=== PATIENT | male | born 1990 ===

== ENCOUNTER 2018-12-28 19:34 | Emergency (ER) | payer SELFPAY ==
--- NOTE | 2018-12-28 20:38 | Event Note ---
ED Screening Note Date of service: 12/28/18 Time: 20:32 ED Screening Note: 28 y o male presents to Ed cc of left sided testicular pain This initial assessment/diagnostic orders/clinical plan/treatment(s) is/are subject to change based on patients health status, clinical progression and re-assessment by fellow clinical providers in the ED. Further treatment and workup at subsequent clinical providers discretion. Patient/guardian urged not to elope from the ED as their condition may be serious if not clinically assessed and managed. Initial orders include: ua US
--- NOTE | 2018-12-28 23:43 | Ultrasound Report ---
Scrotal ultrasound. 12/28/2018. HISTORY: Scrotal pain. FINDINGS: Right testicle measures 4.2 x 2.2 x 2.8 cm. Left testicle measures 4.7 x 1.9 x 2.8 cm. Both testicles are homogeneous and contain no mass. Vascular flow is appropriate bilaterally. A small left hydrocel e is noted. IMPRESSION: Small left hydrocele. Signer Name: Ike Bueno MD Signed: 12/28/2018 11:39 PM Workstation Name: [id number]
--- NOTE | 2018-12-29 00:05 | Emergency Department Report ---
ED Male HPI - General Chief complaint: Urogenital-Male Stated complaint: TESTICULAR PAIN Time Seen by Provider: 12/29/18 00:04 Source: patient Mode of arrival: Ambulatory Limitations: No Limitations - History of Present Illness Initial comments: This is a 28-year-old male presents to the emergency department for evaluation of bilateral testicular pain for the past 5 months. Patient reports she was accidentally hit in the testicle by the strap of his boxers and a few days later to some pull-ups and felt severe pain in the testicles. He states the pain was aggravated by any movement or new alleviating factors. Patient rates the severity of his pain is 7 out of 10 and describes as dull and achy. He denies any lesions, dysuria, urinary frequency, urinary urgency, no discharge, hematuria. MD Complaint: testicle pain - Related Data Previous Rx's Medication Instructions Recorded Last Taken Type Naproxen 500 mg PO BID #20 tablet 12/29/18 Unknown Rx Allergies Allergy/AdvReac Type Severity Reaction Status Date / Time No Known Allergies Allergy Unverified 12/28/18 20:04 ED Review of Systems ROS: Stated complaint: TESTICULAR PAIN Other details as noted in HPI Comment: All other systems reviewed and negative Constitutional: denies: chills, fever Eyes: denies: eye pain, eye discharge, vision change ENT: denies: ear pain, throat pain Respiratory: denies: cough, shortness of breath, wheezing Cardiovascular: denies: chest pain, palpitations Endocrine: no symptoms reported Gastrointestinal: denies: abdominal pain, nausea, diarrhea Genitourinary: as per HPI, testicular pain. denies: urgency, dysuria Musculoskeletal: denies: back pain, joint swelling, arthralgia Skin: denies: rash, lesions Neurological: denies: headache, weakness, paresthesias Psychiatric: denies: anxiety, depression Hematological/Lymphatic: denies: easy bleeding, easy bruising ED Past Medical Hx - Past Medical History Previous Medical History?: No - Surgical History Past Surgical History?: No Hx Appendectomy: Yes Additional Surgical History: Hernia repair - Social History Smoking Status: Never Smoker Substance Use Type: Alcohol - Medications Home Medications: Home Medications Medication Instructions Recorded Confirmed Last Taken Type Naproxen 500 mg PO BID #20 tablet 12/29/18 Unknown Rx ED Physical Exam - General Limitations: No Limitations General appearance: alert, in no apparent distress - Head Head exam: Present: atraumatic, normocephalic - Eye Eye exam: Present: normal appearance - ENT ENT exam: Present: mucous membranes moist - Neck Neck exam: Present: normal inspection, full ROM. Absent: tenderness - Respiratory Respiratory exam: Present: normal lung sounds bilaterally. Absent: respiratory distress, wheezes, rales, rhonchi, stridor - Cardiovascular Cardiovascular Exam: Present: regular rate, normal rhythm. Absent: systolic murmur, diastolic murmur, rubs, gallop - GI/Abdominal GI/Abdominal exam: Present: soft, normal bowel sounds. Absent: distended, tenderness, guarding, rebound, rigid - Rectal Rectal exam: Present: deferred - exam: Present: normal inspection, circumcision, other (normal cremasteric reflex bilaterally. No obvious inguinal hernias. No epididymal tenderness.). Absent: testicular tenderness, urethral discharge, scrotal swelling External exam: Present: normal external exam. Absent: erythema, swelling, lesions, ecchymosis, bleeding - Extremities Exam Extremities exam: Present: normal inspection - Back Exam Back exam: Present: normal inspection - Neurological Exam Neurological exam: Present: alert, oriented X3 - Psychiatric Psychiatric exam: Present: normal affect, normal mood - Skin Skin exam: Present: warm, dry, intact, normal color. Absent: rash ED Course Vital Signs 12/28/18 12/29/18 20:00 00:32 Temperature 98.7 F 95.6 F L Pulse Rate 88 70 Respiratory 16 20 Rate Blood Pressure 129/92 Blood Pressure 179/88 [Left] O2 Sat by Pulse 97 97 Oximetry ED Medical Decision Making - Radiology Data Radiology results: report reviewed, image reviewed Loc: ED Attending Dr: Ordering Physician: MJ RIVERA Date of Service: 12/28/18 Procedure(s): US testicular doppler comp Accession Number(s): [id number] cc: MJ RIVERA Scrotal ultrasound. 12/28/2018. HISTORY: Scrotal pain. FINDINGS: Right testicle measures 4.2 x 2.2 x 2.8 cm. Left testicle measures 4.7 x 1.9 x 2.8 cm. Both testicles are homogeneous and contain no mass. Vascular flow is appropriate bilaterally. A small left hydrocele is noted. IMPRESSION: Small left hydrocele. Signer Name: Ike Bueno MD Signed: 12/28/2018 11:39 PM Workstation Name: [id number] Transcribed By: ES Dictated By: Ike Bueno MD Electronically Authenticated By: Ike Bueno MD Signed Date/Time: 12/28/18 2339 - Medical Decision Making Patient is nontoxic in no acute distress. Vitals are stable. Ultrasound showed small hydrocele. Urine was relatively unremarkable. Recommended scrotal support, anti-inflammatories for pain and urology follow-up. Patient had no obvious inguinal hernias on exam. Testicular torsion was ruled out with ultrasound. No obvious signs of infection such as epididymitis on ultrasound and with clean urine this is unlikely. Recommended to avoid heavy lifting. Patient verbalized understanding of the diagnosis, treatment plan and follow-up instructions AND transferred. - Differential Diagnosis torsion, UTI, epididymitis Critical care attestation.: If time is entered above; I have spent that time in minutes in the direct care of this critically ill patient, excluding procedure time. ED Disposition Clinical Impression: Testicular pain, left Hydrocele Qualifiers: Hydrocele type: unspecified Qualified Code(s): N43.3 - Hydrocele, unspecified Disposition: DC-01 TO HOME OR SELFCARE Is pt being admited?: No Does the pt Need Aspirin: No Condition: Stable Instructions: Testicle Pain (ED), Hydrocele (ED) Prescriptions: Naproxen 500 mg PO BID #20 tablet Referrals: PRIMARY CAREMD [Primary Care Provider] - 3-5 Days Forms: Work/School Release Form(ED) Time of Disposition: 01:39
[2018-12-29 00:34] VITALS: BP 179/88
[2018-12-29 01:31] LABS: Bilirubin,Urine NEG (Negative); Blood,Urine NEG (Negative); Color,Urine Colorless (Yellow); Protein,Urine <15 mg/dL mg/dL (Negative); Urobilinogen,Urine < 2.0 mg/dL (<2.0); WBC,Urine < 1.0 /HPF (0.0-6.0)
== END 2018-12-29 01:45 | disposition home or self-care (01) ==
LOC: ED 19:34
DX: N43.3 Hydrocele, unspecified (principal); Z90.49 Acquired absence of other specified parts of digestive tract; Z79.899 Other long term (current) drug therapy
CPT/HCPCS: 81001; 93975; 99284